=== PATIENT | male | born 2000 | race African-American/Black ===

== ENCOUNTER 2022-08-12 09:25 | Emergency (ER) | payer OTHER ==
[2022-08-12 09:32] VITALS: BP 128/90
[2022-08-12] MEDS ORDERED: ONDANSETRON ODT 4 MG TABLET TL STA (10:57)
--- NOTE | 2022-08-12 11:01 | ED Physician Documentation ---
History of Present Illness - Stated complaint Stated Complaint: DIARRHEA/NAUSEA - Chief complaint Chief Complaint: Abd Pain - History obtained from History obtained from: Patient - Additonal information Additional information: The patient comes to the emergency department chief complaint of abdominal cramping and diarrhea that started last night. He states he has not had any sick contacts. He has been nauseated but has not vomited. 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 His diarrhea has been watery and without blood. He has not really eaten today because he has not felt up to it. No other complaints at this time. No fevers or chills. Review of Systems Ten Systems: 10 systems reviewed and negative Constitutional: reports: Reviewed and negative Eyes: reports: Reviewed and negative Ears: reports: Reviewed and negative Nose: reports: Reviewed and negative Throat: reports: Reviewed and negative Cardiac: reports: Reviewed and negative Respiratory: reports: Reviewed and negative GI: reports: Abdominal Pain (Cramping), Nausea, Diarrhea. denies: Vomiting : reports: Reviewed and negative Skin: reports: Reviewed and negative Musculoskeletal: reports: Reviewed and negative Neurologic: reports: Reviewed and negative Psychiatric: reports: Reviewed and negative Endocrine: reports: Reviewed and negative Immunocompromised: reports: Reviewed and negative PD PAST MEDICAL HISTORY - Present Medications Home Medications: Ambulatory Orders Medication Instructions Recorded Confirmed Ondansetron Odt [Zofran] 4 mg TL Q6H PRN #10 tablet 08/12/22 - Allergies Allergies/Adverse Reactions: Allergies Allergy/AdvReac Type Severity Reaction Status Date / Time No Known Drug Allergies Allergy Verified 08/12/22 09:29 PD ED PE NORMAL - Vitals Vital signs reviewed: Yes - General General: Alert and oriented X 3, No acute distress, Well developed/nourished - HEENT HEENT: Atraumatic, PERRL, EOMI, Moist mucous membranes - Neck Neck: Supple, no meningeal sign - Cardiac Cardiac: RRR, No murmur - Respiratory Respiratory: No respiratory distress, Clear bilaterally - Abdomen Abdomen: Soft, Non distended, Other (Mild epigastric tenderness, no rebound or guarding) - Derm Derm: Warm and dry - Extremities Extremities: No deformity - Neuro Neuro: Alert and oriented X 3 - Psych Psych: Normal mood, Normal affect Results - Vitals Vitals: Vital Signs - 24 hr 08/12/22 08/12/22 09:29 10:28 Temperature 36.5 C Heart Rate 62 51 L Respiratory 16 16 Rate Blood Pressure 128/90 H O2 Saturation 94 97 Oxygen O2 Source Room air PD MEDICAL DECISION MAKING - ED course Complexity details: considered differential, d/w patient ED course: The patient was treated symptomatically with Zofran in the emergency department. We have discussed this is most likely a viral illness which will pass on its own. We have discussed home management of the symptoms, as well as the usual indications for return. Departure - Departure Disposition: 01 Home, Self Care Clinical Impression: Gastroenteritis Condition: Stable Instructions: ED Gastroenteritis Viral Prescriptions: Ondansetron Odt [Zofran] 4 mg TL Q6H PRN #10 tablet PRN Reason: Nausea / Vomiting Comments: A prescription for your nausea medicine has been electronically transmitted to the [facility] pharmacy in [place]. Most likely, you have one of the common viruses that go around and cause nausea and diarrhea. These generally are self-limited within a few days, though sometimes the diarrhea can last for couple days longer than that. It can also take a week for your appetite to return to normal. Please drink plenty of clear liquids. You may also try drinking electrolyte solutions if you wish as we have discussed. When you do feel like eating again, start with simple starches like saltine crackers, Ramen noodles, or white rice. This will decrease the amount of complexity your digestive system has to deal while it is healing. You may progress your diet as tolerated, when she can handle the simple starches. Please follow-up with your doctor as needed.
== END 2022-08-12 11:36 | disposition home or self-care (01) ==
LOC: ED 09:25
DX: K52.9 Noninfective gastroenteritis and colitis, unspecified (principal)
CPT/HCPCS: 99282; Q0162

== ENCOUNTER 2022-11-29 09:18 | Emergency (ER) | payer OTHER ==
[2022-11-29 09:45] LABS: BASOPHILS # (AUTO) 0.1 10^3/uL (0.0-0.1); BASOPHILS % (AUTO) 0.7 %; EOSINOPHILS # (AUTO) 0.4 10^3/uL (0.0-0.7); EOSINOPHILS % (AUTO) 5.1 %; HCT - HEMATOCRIT 43.5 % (42.0-52.0); HGB - HEMOGLOBIN 13.8 g/dL (14.0-18.0); LYMPHOCYTES # (AUTO) 2.8 10^3/uL (1.5-3.5); MEAN CORPUSCULAR HEMOGLOBIN 28.4 pg (27.0-31.0); MEAN CORPUSCULAR HGB CONC 31.7 g/dL (32.0-36.0); MEAN CORPUSCULAR VOLUME 89.5 fL (80.0-94.0); MEAN PLATELET VOLUME 8.8 fL (7.4-11.4); MONOCYTES # (AUTO) 0.5 10^3/uL (0.0-1.0); MONOCYTES % (AUTO) 7.2 %; NEUTROPHILS # (AUTO) 3.4 10^3/uL (1.5-6.6); NEUTROPHILS % (AUTO) 47.9 %; PLT - PLATELET COUNT 281 10^3/uL (130-450); RED BLOOD COUNT 4.86 10^6/uL (4.70-6.10); RED CELL DISTRIBUTION WIDTH 14.1 % (12.0-15.0); WHITE BLOOD COUNT 7.1 x10^3/uL (4.8-10.8)
[2022-11-29 10:05] LABS: ALBUMIN 4.7 g/dL (3.2-5.5); ALBUMIN/GLOBULIN RATIO 1.3 (1.0-2.2); BILIRUBIN,TOTAL 1.3 mg/dL (0.2-1.0); CALCIUM 9.2 mg/dL (8.5-10.3); POTASSIUM 3.9 mmol/L (3.5-5.0); TOTAL PROTEIN 8.2 g/dL (6.7-8.2)
--- NOTE | 2022-11-29 10:08 | ED Physician Documentation ---
PD HPI CHEST PAIN - Stated complaint Stated Complaint: CHEST PX,IRREGULAR EKG - Chief complaint Chief Complaint: Cardiac - History obtained from History obtained from: Patient - History of Present Illness Timing - onset: How many days ago (several) Timing - onset during: Light activity Timing - duration: Seconds Timing - details: Abrupt onset, Still present, Intermittant Quality: Aching, Sharp, Pain Location: Left chest Radiation: No: Neck, Back, Abdominal Improved by: Rest Worsened by: Inspiration, Movement. No: Eating, Palpation Associated symptoms: Shortness of air, Other (He had a chest cold type symptoms with cough malaise sore throat and mild fevers about 3 weeks ago while in [place]. He felt he recovered from that. However he had some episodic left chest pain in the ensuing week. That then improved and has recurred again in the last several days.). No: Nausea, Vomiting Similar symptoms before: Has not had sx before Recently seen: Clinic (went to Walk [facility] and referred to ER due to abnormal ECG but to my interpretation, just showing early repolarization and no ischemic changes.) Review of Systems Constitutional: reports: Myalgias, Fatigue. denies: Fever, Chills Nose: denies: Rhinorrhea / runny nose, Congestion Throat: denies: Sore throat Cardiac: denies: Palpitations, Pedal edema, Calf pain Respiratory: reports: Dyspnea, Cough (minimal still). denies: Wheezing GI: denies: Vomiting, Diarrhea Skin: denies: Rash Musculoskeletal: denies: Extremity swelling PD PAST MEDICAL HISTORY - Past Medical History Cardiovascular: None Respiratory: Sleep apnea, CPAP use Neuro: None Endocrine/Autoimmune: None GI: None : None HEENT: None Psych: None Musculoskeletal: None Derm: None - Past Surgical History Past Surgical History: Yes General: Appendectomy - Present Medications Home Medications: Ambulatory Orders Medication Instructions Recorded Confirmed Acetaminophen [Acetaminophen Extra 500 mg PO QID PRN #40 tablet 11/29/22 Strength] Ibuprofen [Motrin] 600 mg PO TID PRN #25 tab 11/29/22 Losartan [Cozaar] 50 mg PO DAILY 30 Days #30 tablet 11/29/22 - Allergies Allergies/Adverse Reactions: Allergies Allergy/AdvReac Type Severity Reaction Status Date / Time No Known Drug Allergies Allergy Verified 11/29/22 09:23 - Social History Does the pt smoke?: No Smoking Status: Never smoker Does the pt drink ETOH?: Yes Does the pt have substance abuse?: No - Family History Family history: denies: Aortic aneursym, Aortic dissection - Immunizations Immunizations are current?: Yes PD ED PE NORMAL - Vitals Vital signs reviewed: Yes - General General: Alert and oriented X 3, No acute distress, Well developed/nourished - Neck Neck: Supple, no meningeal sign, No adenopathy - Cardiac Cardiac: RRR, No murmur, No rub - Respiratory Respiratory: Clear bilaterally, Other (no chestwall tenderness) - Abdomen Abdomen: Soft, Non tender - Derm Derm: Normal color, Warm and dry - Extremities Extremities: No edema, No calf tenderness / cord - Neuro Neuro: Alert and oriented X 3, No motor deficit, Normal speech Results - Vitals Vitals: Vital Signs - 24 hr 11/29/22 11/29/22 09:23 10:20 Temperature 36.8 C Heart Rate 70 67 Respiratory 18 13 Rate Blood Pressure 141/64 H 129/73 O2 Saturation 100 98 Oxygen O2 Source Room air - EKG (time done) 09:23 Rate: Rate (enter#) (69) Rhythm: NSR [place]: Normal Intervals: Normal NM QRS: Normal Ischemia: Normal ST segments, ST elevation c/w repol. No: ST elevation c/w ischemia, ST depression, T wave inversion - Labs Labs: Laboratory Tests 11/29/22 11/29/22 11/29/22 09:40 09:40 09:40 WBC 7.1 RBC 4.86 Hgb 13.8 L Hct 43.5 MCV 89.5 MCH 28.4 MCHC 31.7 L RDW 14.1 Plt Count 281 MPV 8.8 Neut # (Auto) 3.4 Lymph # (Auto) 2.8 Hooker # (Auto) 0.5 Eos # (Auto) 0.4 Baso # (Auto) 0.1 Absolute Nucleated RBC 0.00 Nucleated RBC % 0.0 Sodium 135 Potassium 3.9 Chloride 98 L Carbon Dioxide 29 Anion Gap 8.0 BUN 14 Creatinine 1.0 Estimated GFR (MDRD) 112 Glucose 96 Calcium 9.2 Total Bilirubin 1.3 H AST 70 H ALT 110 H Alkaline Phosphatase 60 Troponin I High Sens < 2.3 L Total Protein 8.2 Albumin 4.7 Globulin 3.5 Albumin/Globulin Ratio 1.3 Lipase 28 - Rads (name of study) chest xray Radiology: Prelim report reviewed, See rad report PD Medical Decision Making - ED course Complexity details: reviewed results ([facility] clinic saw patient and referred to ER due to abnormal ECg but I only see early repolarizaiton, which is appropriate given younger age and muscular torso. ), considered differential (pleuritic left chest pain. Recent URI about 3 weeks ago, improved. Consider some residual inflammation/pleurisy. Heart sounds and ECG are good, but still could consider pericarditis. Normal Troponin so not myocarditis. ), d/w patient Reviewed Lab Results: chest xray normal without any pneumonia, PTX< effusion, nor masses. ECG and troponin are normal, so not DC, myocarditis, failure. Departure - Departure Disposition: 01 Home, Self Care Clinical Impression: Pleuritic chest pain, Hypertension Condition: Stable Record reviewed to determine appropriate education?: Yes Instructions: ED Hypertension New Begin Tx, ED Chest Pain Pleurisy Follow-Up: BEAN Tsai [Provider Group] Prescriptions: Acetaminophen [Acetaminophen Extra Strength] 500 mg PO QID PRN #40 tablet PRN Reason: Pain Losartan [Cozaar] 50 mg PO DAILY 30 Days #30 tablet Ibuprofen [Motrin] 600 mg PO TID PRN #25 tab PRN Reason: Pain Comments: Your EKG is normal for your age and body type. Has an aspect called early repolarization which is commonly seen. Your chest x-ray is clear without any signs of lung abnormality. Your blood type test is negative for any signs of heart muscle injury. At this point you have a pleuritic chest pain (means affected by breathing). This often signifies some inflammation around the surface of the lung or even potentially around the surface of the heart (pleurisy or pericarditis). These would be treated with anti-inflammatory such as ibuprofen 3 times daily for the next 7 to 10 days. To that add Tylenol every 4-6 hours if needed. I would anticipate improvement of your symptoms of the next several days with the above treatment. Decreased activity today and tomorrow so as to not have to have hard breathing and movement. Follow-up with your primary care clinic if not improving well over the next several days and return if worse. I sent your prescriptions to the [facility] pharmacy. Forms: Activity restrictions Discharge Date/Time: 11/29/22 11:11
--- NOTE | 2022-11-29 10:16 | XRAY Report ---
PROCEDURE: Chest 1 View X-Ray INDICATIONS: Chest Pain TECHNIQUE: One view of the chest was acquired. COMPARISON: None. FINDINGS: Surgical changes and devices: None. Lungs and pleura: No pleural effusions or pneumothorax. Lungs are clear. Mediastinum: Mediastinal contours appear normal. Heart size is normal. Bones and chest wall: No suspicious bony lesions. Overlying soft tissues appear unremarkable. IMPRESSION: Normal two-view chest x-ray Reviewed by: Boris Pineda MD on 11/29/2022 9:14 AM [facility] Approved by: Boris Pineda MD on 11/29/2022 9:14 AM [facility] Station ID: [id number]
[2022-11-29 10:24] VITALS: BP 129/73
[2022-11-29] MEDS ORDERED: IBUPROFEN 600 MG TABLET PO STA (10:39)
[2022-11-29] MEDS ORDERED: ACETAMINOPHEN 325 MG TABLET PO STA (10:39)
== END 2022-11-29 11:11 | disposition home or self-care (01) ==
LOC: ED 09:18
DX: R07.89 Other chest pain (principal); I10 Essential (primary) hypertension
CPT/HCPCS: 36415; 71045; 80053; 83690; 84484; 85025; 93005; 99284; A9270

== ENCOUNTER 2023-06-27 09:11 | Outpatient (CLI) | payer OTHER | END 2023-06-27 09:12 | disposition home or self-care (01) | LOC: DI 09:11 | PROVIDERS: ATTEND Student in an Organized Health Care Education/Training Program | DX: R07.89 Other chest pain (principal) | CPT/HCPCS: 93306 ==

== ENCOUNTER 2023-12-06 11:30 | Outpatient (CLI) | payer OTHER ==
[2023-12-06 21:23] LABS: CHLAMYDIA TRACHOMATIS DNA NEGATIVE (NEGATIVE); NEISSERIA GONORRHOEAE DNA NEGATIVE (NEGATIVE); TRICHOMONAS VAGINALIS DNA NEGATIVE (NEGATIVE)
[2023-12-07 03:12] LABS: RPR Non Reactive (Non Reactive)
[2023-12-07 05:12] LABS: HSV 1 IGG TYPE SPEC <0.91 index (0.00-0.90); HSV 2 IGG TYPE SPEC <0.91 index (0.00-0.90)
[2023-12-07 06:10] LABS: HCV AB Non Reactive (Non Reactive); HIV SCREEN 4TH GENERATION Non Reactive (Non Reactive)
== END 2023-12-06 11:45 | disposition home or self-care (01) ==
LOC: LAB.N 11:30
PROVIDERS: ATTEND Family Medicine
DX: Z11.3 Encounter for screening for infections with a predominantly sexual mode of transmission (principal)
CPT/HCPCS: 36415; 86592; 86695; 86696; 86803; 87389; 87491; 87591; 87661

== ENCOUNTER 2024-02-16 09:01 | Outpatient (CLI) | payer OTHER ==
--- NOTE | 2024-02-16 09:59 | Sleep Patient Instructions ---
Sleep Center Visit Summary - Patient Visit Information Reason for Visit: 10-month follow-up - Patient Instructions Additional Instructions: You were here for follow up of CPAP therapy. You will be continued on CPAP therapy with pressure at 5-[address] an order to try to get a new CPAP replacement with your CPAP supplier. They should reach out to you to set this up if it is approved. You should follow up with sleep care one month after getting new CPAP or 1-2 months if unable to get new device. You may contact us sooner for any questions or concerns. - Clinic Information Contact: [facility] [address] [place] [address] [email or web address] T: [phone]
--- NOTE | 2024-02-16 10:02 | SLEEP CARE CONSULTATION ---
Information from patient questionnaire entered by Calixto Hall. I have reviewed and concur with the information entered by Calixto Hall. This document represents the service I personally performed and the decisions made by me, Olga Siu ARNP. History of Present Illness Service Date and Time: 02/16/2024 09 Previous diagnosis: Moderate, Obstructive Sleep Apnea-Hypopnea Syndrome AHI: 15.3 (11-9-23) Reason for follow up: other (10 MONTH F/U NEVER GOT CPAP DUE TO NO STUDY / WE NOW HAVE THE STUDY) Equipment type: CPAP (IBreeze) Equipment obtained from: Other (needs DME) Mask style: Nasal (Nuance Pro taken home to try) Backup mask available: No Prior sleep studies: Yes Year and Where: [facility] 2020 Type of Sleep Study: Home sleep study HPI additional information: BRYANT VILLATORO was diagnosed to have moderate, AHI 15.3, obstructive sleep apnea-hypopnea syndrome and returned today for CPAP therapy 10 month follow-up. Sleep Study - Results Prior sleep studies: Yes Year and Where: [facility] 2020 CPAP Compliance Data Compliance data discussion: He cannot use his current machine because he has not been able to get supplies. Subjective Missed days of use due to: reports: other (humidifier is not working; popping noise in machine after an hour of use) Patient concerns: reports: condensation in mask/hose, dry mouth, nose, throat. denies: aerophagia, mask discomfort, air blowing in eyes, mask leak noise, nasal congestion, epistaxis Current pressure setting perceived as: comfortable Initial Casar Sleepiness Scale score: 10 (03/31/23) Current Casar Sleepiness Scale score: 13 (02/16/24) Allergies and Home Medications Known drug allergies: No Drug allergies reviewed: Yes Home medication list reviewed: Yes (lisinopril 10 mg, Metformin 500 mg) Allergy and home medication list: Allergies No Known Drug Allergies Allergy (Verified 02/15/24 10:15) Review of Systems Review of systems same as previous: Yes (NO CHANGE) Physical Exam Vital signs obtained and entered by: CALIXTO Choi MA Blood Pressure: 131/76 (RIGHT ARM) Cuff size: regular Heart Rate: 78 O2 Saturation: 96 Height: 6 ft 1 in Weight: 203 lb Body Mass Index: 26.7 BMI Classification: Overweight Impression and Plan 1. Obstructive Sleep Apnea-Hypopnea Syndrome, moderate, with poor treatment compliance and unknown apnea control. He has been unable to use his current IBreeze machine due to a malfunctioning humidifier. He says it is also making a popping noise about an hour after the CPAP is on. Thus, we will request a replacement of his CPAP because it appears to be malfunctioning and he cannot use it. He also needs a DME supplier for CPAP supplies. A [facility] prescription will be made to get him set up. Compliance guidelines for new device and follow up discussed. Patient's apnea severity and rationale for treatment to reduce apnea, improve sleep quality and reduce cardiovascular and cerebrovascular ev ents was reviewed. I also reviewed the benefit of consistent device use of CPAP for hypertension and pre-diabetes. 2. Overweight, unspecified. Currently patients BMI is 26.7. Obesity increases the risk of apnea, CPAP pressure requirements and overall health risks especially cardiovascular and diabetes. Thus patient is advised to lose weight. * Continue auto CPAP pressure at 5-15 cmH2O * Transfer DME * Replacement CPAP * Update supplies * Notify me if snoring with mask or feeling that the pressure is too much or too little * Attempt to lose weight * Call this office if any problems using CPAP * Return for follow up one month after obtaining new CPAP, or sooner if concerns arise Counseling Topics: Weight control Prescriptions: Auto CPAP, Device supplies (Transfer DME) Visit Type: In Office Time Spent with Patient (minutes): 20 Provider Statement: I spent 100% of the Face to Face Visit with the patient with greater than 50% spent counseling the patient and coordination of care.
[2024-02-16 10:06] VITALS: BP 131/76; O2SAT 96
== END 2024-02-16 09:02 | disposition home or self-care (01) ==
LOC: SC 09:01
PROVIDERS: ATTEND Nurse Practitioner Family
DX: G47.33 Obstructive sleep apnea (adult) (pediatric) (principal)
CPT/HCPCS: 99212; 99213

== ENCOUNTER 2024-06-05 09:00 | Outpatient (CLI) | payer OTHER | END 2024-06-05 09:15 | disposition home or self-care (01) | LOC: DI.N 09:00 | PROVIDERS: ATTEND Physician Assistant | DX: Z53.9 Procedure and treatment not carried out, unspecified reason (principal) ==

== ENCOUNTER 2024-06-05 09:15 | Outpatient (CLI) | payer OTHER ==
[2024-06-05 12:53] LABS: ALBUMIN 4.7 g/dL (3.2-5.5); ALBUMIN/GLOBULIN RATIO 1.6 (1.0-2.2); BILIRUBIN,TOTAL 0.7 mg/dL (0.2-1.0); CALCIUM 9.4 mg/dL (8.5-10.3); POTASSIUM 4.3 mmol/L (3.5-4.5); TOTAL PROTEIN 7.7 g/dL (6.4-8.9)
== END 2024-06-05 09:30 | disposition home or self-care (01) ==
LOC: LAB.N 09:15
PROVIDERS: ATTEND Physician Assistant
DX: B35.1 Tinea unguium (principal)
CPT/HCPCS: 36415; 80053